=== PATIENT | male | born 1955 | race Caucasian/White ===

== ENCOUNTER → 2018-07-24 | Outpatient (REF) | payer MEDICARE | LOC: M LAB REF 12:42 | DX: D23.12 Other benign neoplasm of skin of left eyelid, including canthus (principal) | CPT/HCPCS: 88304 ==

== ENCOUNTER → 2021-07-15 | Outpatient (REF) | payer MEDICARE | LOC: M LAB REF 09:33 | PROVIDERS: ATTEND Ophthalmology | DX: D23.122 Other benign neoplasm of skin of left lower eyelid, including canthus (principal) ==

== ENCOUNTER → 2022-05-04 | Outpatient (REF) | payer MEDICARE | LOC: M SFHCDERM 17:22 | PROVIDERS: ATTEND Physician Assistant | DX: D04.61 Carcinoma in situ of skin of right upper limb, including shoulder (principal) ==

== ENCOUNTER → 2023-06-27 | Outpatient (REF) | payer MEDICARE | LOC: M SFHCDERM 13:59 | PROVIDERS: ATTEND Physician Assistant | DX: D04.72 Carcinoma in situ of skin of left lower limb, including hip (principal) ==

== ENCOUNTER → 2025-03-24 | Outpatient (CLI) | payer MEDICARE | LOC: M SOG 07:14 | PROVIDERS: ATTEND Neuromusculoskeletal Medicine, Sports Medicine | DX: M25.562 Pain in left knee (principal) ==

== ENCOUNTER → 2025-07-16 | Outpatient (CLI) | payer MEDICARE | LOC: M SOG 06:53 | PROVIDERS: ATTEND Physician Assistant | DX: M79.641 Pain in right hand (principal); M79.642 Pain in left hand; M19.041 Primary osteoarthritis, right hand; M19.042 Primary osteoarthritis, left hand ==